=== PATIENT | female | born 1995 | race Caucasian/White ===

== ENCOUNTER 2019-06-08 04:08 | Emergency (ER) | payer SELFPAY ==
[2019-06-08 04:12] VITALS: BP 120/78; PULSE 91; RESP 20; TEMP 36.8; O2SAT 96
--- NOTE | 2019-06-08 04:32 | ED.GENADUL_ITS ---
Discharge Plan Disposition Patient Disposition: HOME Condition: Good Discharge Details Chief Complaint: DentalOral Clinical Impression: Fracture of tooth Primary Care Provider: Carina,Local ED Provider: Jourdan Mansfield Meds and New Rx's Prescriptions: New amoxicillin 500 mg capsule 500 mg PO TID Qty: 30 RF: 0 Hydrocodone/Apap 5/325, 4 Tab [[place] 5/325, 4 Tabs/Btl] 1 tab PO DISPENSE Qty: 4 RF: 0 Discharge Instructions Instructions: Hydrocodone/Acetaminophen (By mouth), Amoxicillin (By mouth) Additional Instructions: Please contact in area dentist today from the list provided to arrange for follow-up. Antibiotic as prescribed for presumed infection. Hydrocodone/acetaminophen if needed for severe pain. Continue use of ibuprofen as well. Return to ED for fever, difficulty breathing, facial swelling/redness, inability to swallow. Medical Decision Making Attempted mucosal benzocaine without relief. She has been using [id number] medication without relief. No temporary filling available here to try to help prevent pulp exposure. Given [place] 1 tab here as well as a moxicillin. Continue amoxicillin. To go bottle of [place] given for the day. State information sheet and informed consent regarding narcotics given. List of dentists in the area for her to call this morning for follow-up. Return to ED for fever, face swelling or redness, difficulty breathing, inability to swallow. HPI General Mode of arrival: ambulatory . Date/Time Provider Initiated Documentation: 06/08/19 04:18 . Limitations to Documentation: no limitations . Information obtained by: patient . HPI Narrative: Patient presents to ED with right lower dental pain after breaking of a molar yesterday eating [place]mina tafzeyady. She has had increased pain and a bad taste in her mouth since then. She has been taking Tylenol, Motrin, and using crushed aspirin and Orajel to try to dull the pain. It has just got continuously worse. She has no fever, difficulty breathing, trouble swallowing, facial edema or erythema. Related Data Home Medications Medication Instructions Recorded Confirmed HYDROcodone/APAP 5/325, 4 tab 1 tab PO DISPENSE #4 tab 06/08/19 [[place] 5/325, 4 tabs/btl] amoxicillin 500 mg PO TID #30 cap 06/08/19 Previous Rx's Medication Instructions Recorded HYDROcodone/APAP 5/325, 4 tab 1 tab PO DISPENSE #4 tab 06/08/19 [[place] 5/325, 4 tabs/btl] amoxicillin 500 mg PO TID #30 cap 06/08/19 Allergies Allergy/AdvReac Type Severity Reaction Status Date / Time No Known Allergies Allergy Unverified 06/08/19 04:14 General Stated Complaint: DentalOral SARAH: 4 Review of Systems Constitutional Constitutional: Denies fever(s) ENT Ears, Nose, Mouth, and Throat: Reports dental pain, Denies dysphagia and Denies throat swelling Cardiovascular Cardiovascular: Denies dyspnea Respiratory Respiratory: Denies dyspnea Gastrointestinal Gastrointestinal: Denies dysphagia Allergic/Immunologic Allergic/Immunologic: Denies throat swelling [facility] Medical History No active medical problems (Acute) Surgical History section Cholecystectomy Diagnostic Laproscopy After uterine perforation on D&C Dilation and curettage Family History (Updated 09/23/17 @ 16:10 by Rosalinda March MD) Other Multiple sclerosis Social History Smoking/Tobacco Use Status: Current every day Alcohol Intake: current Alcohol Intake frequency: a few times a week Substance use type: does not use Do you feel safe at home: Yes Do you feel safe in your relationship?: Yes Exam Const General: cooperative and healthy appearing Orientation: alert and oriented x3 HENMT Head: normocephalic and atraumatic Face and sinus: normal facial exam Mouth: lip normal, tongue normal and oropharynx normal Teeth and gingiva: gingiva normal (No obvious abscess present.), abnormal tooth or associated gingiva (Right lower molar with fracture present and pulp exposed.), fair dentition and other (Percussion tenderness involving fractured tooth.) Neck Neck: normal visual inspection, trachea midline and supple Resp Effort & Inspection: normal respiratory effort Course Vital Signs Vital signs: Vital Signs Temperature 98.2 F 06/08/19 04:12 Pulse 91 H 06/08/19 04:12 Respiratory Rate 20 06/08/19 04:12 Blood Pressure 120/78 06/08/19 04:12 Pulse Oximetry 96 06/08/19 04:12 Temperature 98.2 F 06/08/19 04:12 Temperature Source Temporal Artery Scan 06/08/19 04:12 Pulse 91 H 06/08/19 04:12 Respiratory Rate 20 06/08/19 04:12 Respiratory Effort Non-Labored 06/08/19 04:15 Blood Pressure 120/78 06/08/19 04:12 Blood Pressure Position Sitting 06/08/19 04:12 Pulse Oximetry 96 06/08/19 04:12 Oxygen Delivery Method Nasal Cannula 06/08/19 04:12 Oxygen Flow Rate 0 06/08/19 04:12 Pain Level 10 06/08/19 04:12
[2019-06-08] MEDS: Amoxicillin 500 MG CAP PO (04:48)
[2019-06-08] MEDS: HYDROcodone 5/Acetaminophen 325 TAB PO (04:48)
[2019-06-08 04:49] VITALS: BP 120/78; PULSE 91; RESP 20; TEMP 36.8; O2SAT 96
== END 2019-06-08 04:50 | disposition home or self-care (01) ==
PROVIDERS: Emergency Provider Emergency Medicine
DX: R68.84 Jaw pain (principal); S02.5XXA Fracture of tooth (traumatic), initial encounter for closed fracture; X58.XXXA Exposure to other specified factors, initial encounter
CPT/HCPCS: 99283

== ENCOUNTER 2019-06-09 16:54 | Emergency (ER) | payer SELFPAY ==
[2019-06-09 16:57] VITALS: BP 129/89; PULSE 84; RESP 16; TEMP 36.6; O2SAT 98
--- NOTE | 2019-06-09 17:20 | W.ED.GENAD ---
Discharge Plan Disposition Patient Disposition: HOME Condition: Good Discharge Details Chief Complaint: DentalOral Clinical Impression: Fracture of tooth Primary Care Provider: Carina,Local ED Provider: Lima Fabian Home Meds and New Rx's Prescriptions: New amoxicillin-pot clavulanate [Augmentin] 875-125 mg tablet 1 tab PO BID Qty: 14 RF: 0 ondansetron 4 mg tablet,disintegrating 4 mg PO Q6H PRN (Reason: nausea and vomiting) Qty: 10 RF: 0 hydrocodone-acetaminophen [[place]] 5-325 mg tablet 1 tab PO Q4H PRN (Reason: pain) Qty: 7 RF: 0 Continued Hydrocodone/Apap 5/325, 4 Tab [[place] 5/325, 4 Tabs/Btl] 1 tab PO DISPENSE Qty: 4 RF: 0 Discontinued amoxicillin 500 mg capsule 500 mg PO TID Qty: 30 RF: 0 Discharge Instructions Instructions: Acute Dental Trauma (ED) Additional Instructions: Encourage water intake. You may continue with Tylenol and ibuprofen as needed for discomfort. You may use the [place] as prescribed if this is insufficient. However, he can fill the [place] does have Tylenol in it. Is 325 mg/tab. you should not exceed 4000 mg of Tylenol daily. Zofran as prescribed if you have any recurrent nausea. Please keep your upcoming appointment with your dentist. If you develop fever/chills, increased pain or other new/worsening symptom please seek care urgently once again. Discharge Data Discharge Date/Time-TO BE ENTERED AT DEPARTURE: 06/09/19 18:12 Medical Decision Making Patient is a 23-year-old female presenting today with chief complaint of right lower dental pain. She reports she seen here 2 days ago at which time she was begun on amoxicillin. She states she is fractured the afflicted tooth quite a long time ago. However, she reports biting down on something recently and since that time having severe pain. States the pain does radiate into the mandible. Patient did call dentist and has an appointment on Wednesday. She denies fevers. Does endorse some chills. Has had some subjective swelling lateral to the afflicted tooth. Denies difficulty swallowing, difficulty breathing, no facial erythema. On exam, patient is resting comfortably. She is exquisitely tender noting a #30 tooth which does appear to be fractured. She is tender along the buccal and lingual side of the gumline. No fluctuance, erythema or palpable abscess. No swelling under the tongue. Patient was started on amoxicillin 2 days ago and despite this pain has continued to persist. Will change the amoxicillin given the length of time she is been on this. She has an appointment with dentist on Wednesday for follow-up. Patient received #4 [place] which she reports did help slightly with discomfort. She does report some nausea this is typical when she is taking antibiotics and is also requesting some Zofran. Encouraged use of nonnarcotics initially and then advised she may augment with the [place] as prescribed. Encourage water intake. Encouraged good dental care. Advised that she keep her upcoming appointment with dentist even if symptoms begin to improve. She was given return precautions. All of her questions and concerns were addressed and she is in agreement this plan. HPI General Mode of arrival: ambulatory. Date/Time Provider Initiated Documentation: 06/09/19 17:20. Limitations to Documentation: no limitations. Information obtained by: patient and RN notes reviewed. History of Present Illness 23 year old F presents to the emergency department with the chief complaint of right lowr dental pain, described as severe, Quality is described as stabbing, and is localized to the mouth. Patient reports no radiation. Patient started experiencing this day(s) and it has been constant. No relieving factors improve symptom(s), Eating worsens symptoms . Patient notes no other symptoms.. Patient did receive the following treatments prior to arrival, NSAID and other (norco) Related Data Home Medications Medication Instructions Recorded Confirmed HYDROcodone/APAP 5/325, 4 tab 1 tab PO DISPENSE #4 tab 06/08/19 [[place] 5/325, 4 tabs/btl] amoxicillin-pot clavulanate 1 tab PO BID #14 tab 06/09/19 [Augmentin] hydrocodone-acetaminophen [[place]] 1 tab PO Q4H PRN #7 tab 06/09/19 ondansetron 4 mg PO Q6H PRN #10 tab 06/09/19 Previous Rx's Medication Instructions Recorded HYDROcodone/APAP 5/325, 4 tab 1 tab PO DISPENSE #4 tab 06/08/19 [[place] 5/325, 4 tabs/btl] amoxicillin-pot clavulanate 1 tab PO BID #14 tab 06/09/19 [Augmentin] hydrocodone-acetaminophen [[place]] 1 tab PO Q4H PRN #7 tab 06/09/19 ondansetron 4 mg PO Q6H PRN #10 tab 06/09/19 Allergies Allergy/AdvReac Type Severity Reaction Status Date / Time No Known Allergies Allergy Unverified 06/09/19 17:01 General Stated Complaint: DentalOral SARAH: 4 Review of Systems Constitutional Constitutional: Reports as per HPI, Denies chills, Denies fatigue, Denies fever(s), Denies headache(s) and Denies poor appetite Eyes Eyes: Denies change in vision and Denies irritation ENT Ears, Nose, Mouth, and Throat: Reports as per HPI, Reports dental pain, Denies dysphagia, Denies dizziness, Denies dry mouth, Denies ear discharge, Denies otalgia, Reports facial pain, Denies headache(s), Denies hoarseness, Denies lip swelling, Denies nasal congestion, Denies odynophagia and Denies sore throat Cardiovascular Cardiovascular: Reports as per HPI and Denies chest pain Respiratory Respiratory: Reports as per HPI and Denies cough Gastrointestinal Gastrointestinal: Reports as per HPI, Denies dysphagia, Denies nausea, Denies odynophagia and Denies vomiting Integumentary/Breasts Skin/Breast: Reports as per HPI, Denies erythema, Denies rash and Denies skin pain Neurologic Neurologic: Reports as per HPI, Denies dizziness and Denies headache(s) Endocrine Endocrine: Denies fatigue Allergic/Immunologic Allergic/Immunologic: Denies lip swelling [facility] Medical History No active medical problems (Acute) Family History (Updated 09/23/17 @ 16:10 by Rosalinda March MD) Other Multiple sclerosis Social History Smoking/Tobacco Use Status: Current every day Alcohol Intake: current Alcohol Intake frequency: a few times a week Substance use type: does not use Do you feel safe at home: Yes Do you feel safe in your relationship?: Yes Exam Const General: cooperative, healthy appearing, comfortable, no acute distress, well developed and well groomed Nutritional Appearance: average body habitus and well nourished Orientation: alert and awake [facility] Head: normal to inspection, normocephalic and atraumatic Ears: hearing grossly normal bilaterally, external ears normal and TM's normal bilaterally General nose exam: external nose normal and nares normal Face and sinus: normal facial exam, sinuses nontender and face symmetric Teeth and gingiva: dentition normal (Patient is overall good dentition, crackles noted in the #30 tooth) and gingiva normal (Patient is tender along this area on the lingual and buccal side) Throat: posterior oropharynx normal, tonsils normal and uvula midline Eyes General: appearance normal, both eyes and all related structures Neck Neck: normal visual inspection, full ROM, no lymphadenopathy, supple and no anterior neck swelling Resp Effort & Inspection: normal respiratory effort, able to speak in complete sentences and no respiratory distress Auscultation: clear to auscultation bilaterally, no rales, no rhonchi and no wheezes Cardio Rate: regular rate Rhythm: regular rhythm Heart Sounds: S1 normal and S2 normal Skin General skin exam: no rashes or lesions noted Trauma: no lacerations or abrasions Neuro General: alert and awake Cognition: normal cognition Speech: speech normal Gait: normal gait Psych Appearance: grossly normal and well kempt Mental Status: mental status grossly normal Speech and Movement: speech and movement normal Course Vital Signs Vital signs: Vital Signs Temperature 36.6 C 06/09/19 16:57 Pulse 84 06/09/19 16:57 Respiratory Rate 16 06/09/19 16:57 Blood Pressure 129/89 06/09/19 16:57 Pulse Oximetry 98 06/09/19 16:57 Temperature 36.6 C 06/09/19 16:57 Pulse 84 06/09/19 16:57 Respiratory Rate 16 06/09/19 16:57 Respiratory Effort 06/09/19 17:01 Blood Pressure 129/89 06/09/19 16:57 Blood Pressure Position Sitting 06/09/19 16:57 Pulse Oximetry 98 06/09/19 16:57 Oxygen Delivery Method Room Air 06/09/19 16:57 Oxygen Flow Rate 0 06/09/19 16:57 Pain Level 10 06/09/19 17:11
[2019-06-09 18:10] VITALS: BP 129/89; PULSE 84; RESP 16; TEMP 36.6; O2SAT 98
== END 2019-06-09 18:12 | disposition home or self-care (01) ==
PROVIDERS: Emergency Provider Physician Assistant
DX: R68.84 Jaw pain (principal); S02.5XXA Fracture of tooth (traumatic), initial encounter for closed fracture; X58.XXXA Exposure to other specified factors, initial encounter
CPT/HCPCS: 99283

== ENCOUNTER 2019-12-11 09:13 | Emergency (ER) | payer MEDICAID, SELFPAY ==
[2019-12-11 09:20] VITALS: BP 147/79; PULSE 97; RESP 18; TEMP 36.8; O2SAT 98
--- NOTE | 2019-12-11 09:30 | ED.GENADUL_ITS ---
Discharge Plan Disposition Patient Disposition: HOME Condition: Improving Discharge Details Chief Complaint: Nk/Back Pain Clinical Impression: Contusion of rib on right side Primary Care Provider: Gianfranco Ramirez ED Provider: Rosalba Hernandez Home Meds and New Rx's Prescriptions: New oxycodone 5 mg tablet 5 mg PO Q6H PRN (Reason: pain) Qty: 10 RF: 0 ondansetron 4 mg tablet,disintegrating 4 mg PO TID PRN (Reason: nausea and vomiting) Qty: 6 RF: 0 Discharge Instructions Instructions: Rib Contusion (ED) Additional Instructions: Drink plenty of fluids and get plenty of rest. Alternate tylenol and motrin as needed and directed for pain. Take the oxycodone for pain not relieved with Tylenol or Motrin. Take the Zofran as needed and directed for nausea and vomiting. Use the incentive spirometer to help you with taking deep breaths to prevent the development of pneumonia. Follow up with your primary care doctor in 1 week as needed. Return to the emergency department with any worsening or new concerning symptoms such as blood in your urine, chest pain, difficulty breathing, abdominal pain or persistent vomiting. Discharge Data Discharge Physician: Rosalba Hernandez Medical Decision Making 0930 -- 24-year-old female presents with right posterior inferior lateral rib pain after falling off the bed and hitting her right lower lateral back on a metal fan last night. Denies any hematuria or other change in urinary symptoms. Denies cauda equina symptoms. BP mildly hypertensive. She appears nontoxic but quite uncomfortable. She has localized area of tenderness to the right posterior inferolateral ribs. No CVA tenderness. No abdominal tenderness. No focal deficits. Neurovascular intact. Will refer for right rib and PA lateral chest x-ray, give a dose of oxycodone and Lidoderm patch and reassess. X-rays reviewed and negative. Suspect patient has a rib fracture based on her level of pain. Her pain improved somewhat here. She was given an incentive spirometer and prescriptions for oxycodone and Zofran. She requested Zofran as she developed nausea with narcotics. Advised to follow up with the primary care doctor for re-evaluation. Usual and customary return precautions given prior to discharge. Medical Records Medical records reviewed: Yes I reviewed the patient's medical records. Imaging Data Radiologic Study: Radiologist's impression: XR RIBS RT W PA LAT CHEST CLINICAL HISTORY: hit R lower ribs on metal fan, r/o fx @ rib 01/17 TECHNIQUE: COMPARISON: CR ABD FLAT UPRIGHT PA CHEST from 02/01/2011 FINDINGS: PA and lateral chest with 2 additional views of right ribs were obtained. Heart is not enlarged. Lungs are clear. No pneumothorax or pleural effusion. No rib fracture seen. IMPRESSION: Negative examination of the chest and ribs. HPI General Mode of arrival: ambulatory . Date/Time Provider Initiated Documentation: 12/11/19 09:29 . Limitations to Documentation: no limitations . Information obtained by: patient . HPI Narrative: Patient is a 24-year-old female with a history of hysterectomy who presents with right posterior lower rib pain since last night after falling off of a bed in intercourse with her boyfriend last night. She states she hit her right lower back on a metal fan. She has been having pain in this area since then. She denies any pain in any other locations. She states she hit her head mildly but denies any headache or head injury, LOC or vomiting. Tylenol this morning without relief. She also tried a lidocaine patch last night without relief. She denies fever, abdominal pain, bowel or bladder incontinence, leg pain or numbness, hematuria, dysuria or any change in urination. Related Data Home Medications Medication Instructions Recorded Confirmed ondansetron 4 mg PO TID PRN #6 tab 12/11/19 oxycodone 5 mg PO Q6H PRN #10 tab 12/11/19 Previous Rx's Medication Instructions Recorded ondansetron 4 mg PO TID PRN #6 tab 12/11/19 oxycodone 5 mg PO Q6H PRN #10 tab 12/11/19 Allergies Allergy/AdvReac Type Severity Reaction Status Date / Time No Known Allergies Allergy Unverified 12/11/19 09:22 General Stated Complaint: FlankPain SARAH: 3 Review of Systems All systems reviewed & are unremarkable except as noted in HPI and below Constitutional Constitutional: Reports as per HPI, Denies chills and Denies fever(s) Eyes Eyes: Denies blurry vision ENT Ears, Nose, Mouth, and Throat: Denies dizziness, Denies sore throat and Denies throat swelling Cardiovascular Cardiovascular: Denies chest pain and Denies dyspnea Respiratory Respiratory: Denies cough and Denies dyspnea Gastrointestinal Gastrointestinal: Denies abdominal pain, Denies diarrhea and Denies vomiting Genitourinary Genitourinary: Denies hematuria and Denies dysuria Musculoskeletal Musculoskeletal: Reports back pain and Denies numbness Integumentary/Breasts Skin/Breast: Denies lesions and Denies rash Neurologic Neurologic: Denies dizziness, Denies localized weakness and Denies numbness Allergic/Immunologic Allergic/Immunologic: Denies throat swelling [facility] Medical History (Updated 12/11/19 @ 10:41 by Rosalba Hernandez DO) No active medical problems (Acute) Surgical History (Updated 12/11/19 @ 09:41 by Rosalba eHrnandez DO) section Cholecystectomy Diagnostic Laproscopy After uterine perforation on D&C Dilation and curettage History of hysterectomy (Chronic) Family History (Updated 09/23/17 @ 16:10 by Rosalinda March MD) Other Multiple sclerosis Social History Smoking/Tobacco Use Status: Current every day Tobacco Type: cigarettes Alcohol Intake: current Alcohol Intake frequency: a few times a week Substance use type: does not use Do you feel safe at home: Yes Do you feel safe in your relationship?: Yes Exam Const General: cooperative, uncomfortable and no acute distress HENMT Head: normal to inspection Face and sinus: normal facial exam Eyes General: appearance normal, both eyes and all related structures EOM: EOM intact bilaterally Neck Neck: normal visual inspection and No submandibular swelling Lymphatic: no lymphadenopathy noted Chest Chest: normal inspection of the chest and no tenderness Resp Effort & Inspection: normal respiratory effort and able to speak in complete sentences Auscultation: clear to auscultation bilaterally Cardio Rate: regular rate Rhythm: regular rhythm GI Inspection: normal to inspection Palpation: soft, not firm, not rigid and nontender Auscultation: normal bowel sounds Back/Spine/Pelvis Thoracic/Lumbar Spine: thoracic and lumbar spine normal to inspection and straight leg raise negative bilaterally Back/spine/pelvis image: 1. Tenderness to palpation R posterior inferolateral ribs. No crepitus, edema, ecchymoses, step off or abrasions. Skin General skin exam: no rashes or lesions noted Neuro General: patient alert, patient awake and patient oriented x3 Cognition: normal cognition Speech: speech normal Motor: muscle tone normal throughout and strength 5/5 throughout (b/l LE) Sensory Exam: no sensory deficits noted Extrem General: normal to inspection, full ROM, capillary refill normal, no calf tenderness bilaterally and no edema Other: b/l distal pulses intact. Psych Appearance: grossly normal Mental Status: mental status grossly normal Speech and Movement: speech and movement normal Affect: normal affect Course Vital Signs Vital signs: Vital Signs Temperature 98.2 F 12/11/19 09:20 Pulse 97 H 12/11/19 09:20 Respiratory Rate 18 12/11/19 09:20 Blood Pressure 147/79 H 12/11/19 09:20 Pulse Oximetry 98 12/11/19 09:20 Temperature 98.2 F 12/11/19 09:20 Temperature Source Skin 12/11/19 09:20 Pulse 97 H 12/11/19 09:20 Respiratory Rate 18 12/11/19 09:20 Respiratory Effort 12/11/19 09:23 Blood Pressure 147/79 H 12/11/19 09:20 Blood Pressure Position Sitting 12/11/19 09:20 Pulse Oximetry 98 12/11/19 09:20 Oxygen Delivery Method Room Air 12/11/19 09:20 Oxygen Flow Rate 0 12/11/19 09:20 Pain Level 9 12/11/19 09:25
[2019-12-11] MEDS: oxyCODONE 5 MG TAB PO (09:45)
[2019-12-11] MEDS: Lidocaine 5% Patch 1 PATCH TP (09:47)
[2019-12-11 10:38] VITALS: BP 117/76; PULSE 90; RESP 14; O2SAT 98
[2019-12-11] MEDS: Ondansetron O.D.T. 4 MG TABEF (10:42)
== END 2019-12-11 10:50 | disposition home or self-care (01) ==
PROVIDERS: Emergency Provider Physician Assistant; PCP General Practice
DX: S20.221A Contusion of right back wall of thorax, initial encounter (principal); W06.XXXA Fall from bed, initial encounter; W22.8XXA Striking against or struck by other objects, initial encounter
CPT/HCPCS: 99283; 71046; 71100

== ENCOUNTER 2021-02-11 21:31 | Emergency (ER) | payer MEDICAID, SELFPAY ==
[2021-02-11 21:39] VITALS: BP 126/85; PULSE 75; RESP 18; TEMP 36.4; O2SAT 100
[2021-02-11 21:53] LABS: Bilirubin Negative (Negative); Blood Negative (Negative); Clarity Clear (Clear); Ketones Negative (Negative); Leukocyte Esterase Negative (Negative); Urobilinogen 0.2 EU/dL (Up TO 0.2); pH 6.5 (5-8)
--- NOTE | 2021-02-11 22:03 | ED.GENADUL_ITS ---
Discharge Plan Disposition Patient Disposition: HOME Condition: Good Discharge Details Clinical Impression: Bacterial vaginosis, Dysuria Primary Care Provider: Gianfranco Ramirez ED Provider: Remington Bell Home Meds and New Rx's Prescriptions: New metronidazole 500 mg tablet 500 mg PO BID 7 Days Qty: 14 RF: 0 Continued Vyvanse 50 mg Capsule 50 mg PO DAILY RF: 0 ondansetron 4 mg tablet,disintegrating 4 mg PO TID PRN (Reason: nausea and vomiting) Qty: 6 RF: 0 Discharge Instructions Instructions: Metronidazole (By mouth), Bacterial Vaginosis (ED), Dysuria (ED) Additional Instructions: You have evidence of bacterial vaginosis. This is the cause of your discharge, but unlikely to be the cause of your dysuria. Please take the metronidazole as directed. We have given you a few pills to hold you over until you are able to fill your prescription. Please take Tylenol and Motrin as needed for pain. Take the [place] pain pill only as needed for breakthrough pain. Do not drink any alcohol while taking the [place] or the metronidazole as it can cause a notable reaction. We have placed a referral with our urologist. Please follow-up closely with him for further differentiation of your persistent dysuria. If you notice any worsening of your symptoms, or any new symptoms such as vomiting, diarrhea, fever, chills, shortness of breath, chest pain, numbness, weakness, or fainting , please return immediately to the emergency department for reevaluation. Please follow up with your primary care provider as soon as possible for reassessment and reevaluation. As always, it was a pleasure participating in your medical care today. Stand Alone Forms: Work Release Referrals: Puneet Griggs MD [ [facility] STAFF PHYSICIAN] - Medical Decision Making This is a 25-year-old female who denies any significant past medical history who presents today for evaluation of urinary complaints vaginal discharge. Patient states that over the last 2 to 3 weeks she has had mild vaginal discharge which is atypical for her. She has had a history of a hysterectomy in the past and single ovarian removal. She admits to urinary burning, dysuria, frequency and now lower back pain. She admits to occasional chills. She denies any vomiting or diarrhea. She denies any history of STDs. She states that she is in a monogamous relationship but does not use protection. No other complaints at this time. She has been drinking extra fluids and taking Azo, and has also been taking a few leftover penicillin pills with no improvement of her symptoms. No other modifying factors. Physical exam demonstrates mild suprapubic tenderness, no flank or CVA tenderness, no lower abdominal tenderness. Differential includes UTI, potential vaginal infection, however she has had a hysterectomy. We will get a UA, perform pelvic exam, monitor closely and reassess. Symptoms at this time appear inconsistent with acute appendicitis. 11:19 PM Vaginal exam was performed, few abnormal findings were noted. First of all the patient has notable tenderness over the urethral meatus, almost out of proportion with what I would have expected. External genitals showed no signs of lesions, ulcers, masses or abnormality. Clitoris is unremarkable. The vaginal exam demonstrates notable amount of thick white noncurd-like discharge. She has notable tenderness in the posterior proximal component of the vaginal vault. No lesion is visualized on exam. Bimanual exam is unremarkable and nontender. 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 Additionally she states that post hysterectomy she did have rupture or dehiscence of a few of the sutures and had subsequent scarring. In regards to the current clinical process the patient did have intercourse 4 days ago, and while her dysuria was certainly present before then, the day following the episode of intercourse she began having the vaginal discharge and greater pain and pressure in the pelvic region. She states that her episode of intercourse was nontender and otherwise unremarkable without extra or atypical vigorous components. Because of these findings, and the exam we will get a CT scan to evaluate for potential posterior cuff abscess, there is no ultrasound is currently available. We will treat with morphine for pain control, rehydrate, monitor closely and reassess. 1:[address] scan has returned, no evidence of significant abnormality, no evidence of abscess. There is trace free pelvic fluid, but no other significant abnormality. Vaginal path screen does demonstrate bacterial vaginosis which does correlate with the visual findings noted on exam. Laboratory work-up is unremarkable, no white count bandemia or left shift. Urinalysis was notably negative, repeat second urinalysis was collected and is also completely negative of any evidence of infection, leuk esterase, nitrates, or significant RBCs. After morphine repeat abdominal exam demonstrated notable improvement of pre viously present tenderness, patient feels well. Symptoms inconsistent with torsion of her remaining ovary, and are also inconsistent with appendicitis or other acute surgical abdominal pathology. Uncertain as to what the exact cause of her continued urethritis symptoms are, however patient does have a family history of MS, so there is concern for potential autoimmune components including interstitial cystitis, neurogenic bladder versus bladder spasm, or other etiologies. At this time patient is feeling better and is stable for discharge but does require further evaluation. We will place a referral with urology for further assessment of the patient's persistent cystitis. Gonorrhea and Chlamydia test as are still pending, she will be contacted with any positive results. I feel these are notably unlikely though. Will give oral metronidazole for bacterial vaginosis, place referral with urology, recommend close follow-up with PCP. Discussed red flags which to return. I have extensi vely reviewed the treatment plan and discharge instructions with the patient. I have addressed all patient concerns at this time. The patient was made aware of what symptoms to monitor for that would warrant a return to the emergency department. Discussed the plan with the patient, they demonstrate verbal understanding and agreement with our assessment and plan at this time. The documentation in this chart was dictated using Sverve dictation software. Please excuse any dictation errors. OF NOTE: At time of discharge patient was given a small additional dose of morph ine, immediately thereafter she had a notable spasm and abdominal cramp. Bedside ultrasound showed no evidence of aneurysm, no pericardial effusion, EKG is unremarkable. Symptoms resolved shortly thereafter on their own without any intervention no significance. Patient did note then that when she got her first dose of morphine she did notice similar symptoms although significantly more muted, and this felt like a much stronger exacerbation of the symptoms. She demonstrates no rash, no airway compromise, no angioedema, or signs of anaphylaxis whatsoever. After just a few minutes her symptoms completely resolved. I did offer continued observation here in the ED, however she states that she feels well and would like to go home now. Patient will be discharged according to plan. FINDINGS: Liver: Normal. No mass. Gallbladder and bile ducts: The patient is status post cholecystectomy. Pancreas: Normal. No ductal dilation. Spleen: Normal. No splenomegaly. Adrenal glands: Normal. No mass. Kidneys and ureters: Normal. No hydronephrosis. Stomach and bowel: Unremarkable. No obstruction. No mucosal thickening. Appendix: No evidence of appendicitis. Intraperitoneal space: Trace free fluid is present which is nonspecific but may reflect physiologic fluid or rupture of an ovarian cyst or follicle. Vasculature: Unremarkable. No abdominal aortic aneurysm. Lymph nodes: Unremarkable. No enlarged lymph nodes. Urinary bladder: Unremarkable as visualized. Reproductive: The patient is status post hysterectomy. Bones/joints: Unremarkable. No acute fracture. Soft tissues: Unremarkable. IMPRESSION: Trace free pelvic fluid. Thank you for allowing us to participate in the care of your patient. Dictated and Authenticated by: Frank Cotton MD 02/12/2021 12:08 AM Eastern Time ([place] & [place]) HPI General Date/Time Provider Initiated Documentation: 02/11/21 21:31 . HPI Narrative: Kelsy ramirez is a 25-year-old female who denies any significant past medical history who presents today for evaluation of urinary complaints vaginal discharge. Patient states that over the last 2 to 3 weeks she has had mild vaginal discharge which is atypical for her. She has had a history of a hysterectomy in the past. She admits to urinary burning, dysuria, frequency and now lower back pain. She admits to occasional chills. She denies any vomiting or diarrhea. She denies any history of STDs. She states that she is in a monogamous relationship but does not use protection. No other complaints at this time. She has been drinking extra fluids and taking Azo, and has also been taking a few leftover penicillin pills with no improvement of her symptoms. No other modifying factors. Related Data Home Medications Medication Instructions Recorded Confirmed ondansetron 4 mg PO TID PRN #6 tab 12/11/19 02/11/21 Vyvanse 50 mg PO DAILY 02/11/21 02/11/21 metronidazole 500 mg PO BID 7 Days #14 tab 02/12/21 Previous Rx's Medication Instructions Recorded ondansetron 4 mg PO TID PRN #6 tab 12/11/19 metronidazole 500 mg PO BID 7 Days #14 tab 02/12/21 Allergies Allergy/AdvReac Type Severity Reaction Status Date / Time No Known Allergies Allergy Unverified 02/11/21 21:43 General Stated Complaint: Urinary SARAH: 3 Review of Systems All systems reviewed & are unremarkable except as noted in HPI and below PFSH Medical History No active medical problems Surgical History section Cholecystectomy Diagnostic Laproscopy After uterine perforation on D&C Dilation and curettage History of hysterectomy Family History Other Multiple sclerosis Social History Smoking/Tobacco Use Status: Current every day Tobacco Type: cigarettes Smoking risk assessment performed?: Yes Alcohol Intake: current Alcohol Intake frequency: a few times a week Substance use type: does not use Do you feel safe at home: Yes Do you feel safe in your relationship?: Yes Exam Narrative Exam Narrative: 1.Const: Well-nourished, Well-developed, appearing stated age 2.Eyes: PERRL, no conjunctival injection, and symmetrical lids. 3.ENT: Atraumatic external nose and ears. Moist MM. Neck: Symmetric, trachea midline, No thyromegaly. 4.CVS: +S1/S2, No murmurs or gallops. Peripheral pulses 2+ and equal in all extremities. Brisk capillary refill in all extremities. 5.RESP: Unlabored respiratory effort. Clear to auscultation bilaterally. No wheezes rales or rhonchi 6.GI: Soft, nondistended, mild tenderness in the lower suprapubic region, no flank or CVA tenderness. No pain at McBurney's point, negative Caceres sign. Vaginal exam was performed with female nurse Milli at bedside. Vaginal exam demonstrates notable thick noncurd-like white discharge. No lesions that I can visualize. Notable tenderness over the urethra, but no lesions, ulcers or other abnormalities visualized. Bimanual exam demonstrates no tenderness, however palpation of the posterior proximal component to the vaginal vault does elicit notable tenderness. 7.MSK: Normocephalic/Atraumatic, Extremities w/o deformity or ttp No cyanosis or clubbing, Normal movement of all extremities 8.Skin: Warm, Dry. No rashes or lesions. 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 Sensation grossly intact, no focal neurologic deficits. 10.Psych: (AAO) x3. Appropriate mood and affect Course Vital Signs Vital signs: Vital Signs Temperature 36.4 C L 02/11/21 21:39 Pulse 75 02/11/21 21:39 Respiratory Rate 18 02/11/21 21:39 Blood Pressure 126/85 02/11/21 21:39 Pulse Oximetry 100 02/11/21 21:39 Temperature 36.4 C L 02/11/21 21:39 Pulse 75 02/11/21 21:39 Respiratory Rate 18 02/11/21 21:39 Respiratory Effort Non-Labored 02/11/21 21:41 Blood Pressure 126/85 02/11/21 21:39 Pulse Oximetry 100 02/11/21 21:39 Pain Level 8 02/11/21 21:39 Lab/Test Results Lab/Test Results: Laboratory Tests Range/Units 02/11/21 21:45 Urine Color (Yellow) [place] Urine Clarity (Clear) Clear Urine pH (5-8) 6.5 Ur Specific Bryan (1.005-1.025) 1.010 Urine Protein (Negative) mg/dL Negative Urine Ketones (Negative) mg/dL Negative Urine Blood (Negative) Negative Urine Nitrite (Negative) Urine Bilirubin (Negative) Negative Urine Urobilinogen (Up TO 0.2) EU/dL 0.2 Ur Leukocyte Esterase (Negative) Negative Urine Glucose (Negative) mg/dL POC- Test(urine) Negative
[2021-02-11] MEDS: Ketorolac 30 MG/ML VIAL IM (22:15)
--- NOTE | 2021-02-11 22:30 | DI.CT_ITS ---
Exam(s) CT ABDOMEN PELVIS W EXAM: CT ABDOMEN PELVIS W CLINICAL HISTORY: pelvic pain, vag d/c, notably tender vag cuff, hys TECHNIQUE: Imaging Protocol: Axial computed tomography images with coronal and sagittal reformatted images were created and reviewed CONTRAST MATERIAL: Intravenous: Omnipaque 350 Contrast volume:100 mL Oral: No COMPARISON: No exams were available for comparison FINDINGS: ABDOMEN: Lung Bases: Normal where visualized. Liver: Normal density. No measurable mass. Portal, Superior Mesenteric, and Splenic Veins: Unremarkable. Gallbladder and Biliary Tract: Status post cholecystectomy. No biliary ductal dilatation. Pancreas: Normal density, no abnormal calcifications or inflammatory process. Spleen: Normal. Adrenals: No masses seen. Kidneys: Normal size, contour and axis. No radiodense stones or obstructive uropathy. No masses seen. Abdominal Aorta: Abdominal portion non-dilated. IVC: There is a retroaortic left renal vein. Bowel: No obstruction or bowel wall thickening. There is an air-filled appendix without periappendice al inflammation. Peritoneal Cavity: There is a trace amount of fluid in the pelvis. No free air. Lymph Nodes: Within normal limits. Bones: Within normal limits for the patient's age. Soft Tissues: Unremarkable. PELVIS: Bladder: Incompletely distended but no gross abnormality. Reproductive Organs: There is a peripherally enhancing 2.4 cm left ovarian follicle. The ovaries are unremarkable. Status post hysterectomy. There is also stranding stranding in the soft tissues surr ounding the vaginal cuff. No focal fluid collection is seen to suggest an abscess. Lymph Nodes: Within normal limits. Bones: Within normal limits for the patient's age. IMPRESSION: 1. Mild stranding around the vaginal cuff. An inflammatory/infectious process should be considered. No abscess is seen. 2. Small amount of free fluid in the pelvis. RADIATION DOSE DELIVERED: 886.62mGy.cm Total DLP DATA REPOSITORY: All CT scans at this facility are submitted to the National Radiology Data Registry (NRDR) Dose Index Registry (DIR) with the [employer] ([employer]). RADIATION OPTIMIZATION: All CT scans at this facility use at least one of these dose optimization te chniques: automated exposure control; mA and/or kV adjustment per patient size (includes targeted exa ms where dose is matched to clinical indication); or iterative reconstruction.
[2021-02-11 22:59] LABS: Abs Immature Grans 0.02 10^3/uL (0.0-0.06); Absolute Basophil Count 0.04 10^3/uL (0.0-0.2); Absolute Eosinophil Count 0.48 10^3/uL (0.0-0.7); Absolute Lymphocyte Count 3.17 10^3/uL (1.2-3.4); Absolute Monocyte Count 0.49 10^3/uL (0.1-0.8); Absolute Neutrophil Count 4.63 10^3/uL (1.2-6.7); Basophils % 0.5; Eosinophils % 5.4; HCT 39.5 % (36.0-46.0); HGB 13.1 g/dL (11.2-15.7); Immature Grans % 0.2; Lymphocytes % 35.9; MCH 31.8 pg (27.0-33.0); MCHC 33.2 % (32.0-36.0); MCV 95.9 fL (80-95); MPV 8.8 fL (8.0-11.0); Monocytes % 5.5; Neutrophils % 52.5; Nucleated RBC 0 %; Platelet Count 229 10^3/uL (130-400); RBC 4.12 10^6/uL (3.93-5.22); RDW 11.8 % (11.7-14.6); RDW-SD 41.2 fL; WBC 8.83 10^3/uL (4.4-10.8)
[2021-02-11] MEDS: Omnipaque 350 MG/ML 100 ML BTL IJ (23:02)
[2021-02-11] MEDS: Normal Saline - Diluent 50 ML VIAL IV (23:02)
[2021-02-11] MEDS: Normal Saline Flush 10 ML SYR IVP (23:03)
[2021-02-11 23:18] LABS: ALT 16 U/L (14-59); AST 12 U/L (15-37); Albumin 4.2 g/dL (3.4-5.0); Alkaline Phosphatase 59 U/L (46-116); Anion Gap 7.2 mmol/L (3-11); BUN 9 mg/dL (7-18); Bilirubin, Total 0.5 mg/dL (0.2-1.0); CO2 27.8 mmol/L (21.0-32.0); CREATININE 0.8 mg/dL (0.55-1.02); Calcium 8.8 mg/dL (8.5-10.1); Chloride 106 mmol/L (98-107); Glucose 85 mg/dL (74-106); Sodium 141 mmol/L (136-145); Total Protein 7.6 g/dL (6.4-8.2)
[2021-02-11 23:21] VITALS: BP 112/74; PULSE 69; RESP 18; O2SAT 99
[2021-02-11] MEDS: Lactated Ringers 1,000 ML 1000 ML IV (23:27)
[2021-02-11 23:47] LABS: Clarity Clear (Clear)
[2021-02-11 23:55] LABS: Bacteria Negative HPF (Negative); C & S Indicated? No; Crystals Negative HPF (Negative); Epithelial Cells Negative HPF (Negative); Mucus Negative (Negative); RBC 0-2 HPF (0-2); WBC Negative HPF (0-5)
--- NOTE | 2021-02-12 00:09 | DI.VRAD_ITS ---
Addendum created by Frank Cotton MD on 02/12/2021 12:15:28 AM EDT: THIS REPORT CONTAINS FINDINGS THAT MAY BE CRITICAL TO PATIENT CARE. The findings were verbally communicated via telephone conference with BLAYNE NGUYỄN at 12:15 AM EDT on 02/12/2021. The findings were acknowledged and understood. Initial report created on 02/12/2021 12:08:23 AM EDT: PROCEDURE INFORMATION: Exam: CT Abdomen And Pelvis With Contrast Exam date and time: 02/11/2021 10:37 PM Age: 25 years old Clinical indication: Abdominal pain; Localized; Lower; Prior surgery; Surgery date: 6+ months; Surgery type: Hysterectomy, cholecystectomy, ; Patient HX: Pelvic pain for 2 weeks, nausea, vag d/c, notably tender vag cuff, hys TECHNIQUE: Imaging protocol: Computed tomography of the abdomen and pelvis with contrast. Radiation optimization: All CT scans at this facility use at least one of these dose optimization techniques: automated exposure control; mA and/or kV adjustment per patient size (includes targeted exams where dose is matched to clinical indication); or iterative reconstruction. Contrast material: [id number]; Contrast volume: 100 ml; Contrast route: INTRAVENOUS (IV); COMPARISON: [facility] OB ULTRASOUND 10/01/2017 11:06 AM FINDINGS: Liver: Normal. No mass. Gallbladder and bile ducts: The patient is status post cholecystectomy. Pancreas: Normal. No ductal dilation. Spleen: Normal. No splenomegaly. Adrenal glands: Normal. No mass. Kidneys and ureters: Normal. No hydronephrosis. Stomach and bowel: Unremarkable. No obstruction. No mucosal thickening. Appendix: No evidence of appendicitis. Intraperitoneal space: Trace free fluid is present which is nonspecific but may reflect physiologic fluid or rupture of an ovarian cyst or follicle. Vasculature: Unremarkable. No abdominal aortic aneurysm. Lymph nodes: Unremarkable. No enlarged lymph nodes. Urinary bladder: Unremarkable as visualized. Reproductive: The patient is status post hysterectomy. Bones/joints: Unremarkable. No acute fracture. Soft tissues: Unremarkable. IMPRESSION: Trace free pelvic fluid. Dictated and Authenticated by: Frank Cotton MD. Ordering:MICHAEL Macedo MD
--- NOTE | 2021-02-12 00:31 | NUR.NOTE ---
Nursing Note: i faxed the care management referral for urology in one week , ning
[2021-02-12] MEDS: metroNIDAZOLE 500 MG TAB, 3 TABS/BTL PO (00:41)
--- NOTE | 2021-02-12 00:45 | RT.EKG_ITS ---
APPROVED REPORT Exam: Resting ECG Reason for Exam: chest pain Patient Location: E HR:70 bpm ECG Measurements Heart Rate 70 AXIS WV 158 P 75 QRSd 86 QRS 53 QT 400 T 47 QTc 431 Conclusion Sinus rhythm...normal P axis, V-rate 60- 99 Physician: no stemi, unremarkable
[2021-02-12 00:47] VITALS: BP 110/68; PULSE 68; RESP 16; O2SAT 98
[2021-02-12 00:54] VITALS: BP 112/62; PULSE 70; RESP 15; O2SAT 100
--- NOTE | 2021-02-12 15:36 | NUR.NOTE ---
returned her call to tell her that the results she is looking for are still pending.Nursing Note:
[2021-02-13 14:06] LABS: Chlamydia Result Negative (Negative); GC Result Negative (Negative)
== END 2021-02-12 01:16 | disposition home or self-care (01) ==
PROVIDERS: Emergency Provider Student in an Organized Health Care Education/Training Program; PCP General Practice
DX: N76.0 Acute vaginitis (principal); B96.89 Other specified bacterial agents as the cause of diseases classified elsewhere; R30.0 Dysuria; R10.2 Pelvic and perineal pain; Z90.710 Acquired absence of both cervix and uterus
CPT/HCPCS: 80053; 81025; 87491; 87591; 93005; 96361; 96372; 96374; 96376; 99285; 74177; 81003; 81015; 85025; 87480; 87510; 87660; 93010; J1885; J3490

== ENCOUNTER 2021-02-13 21:32 | Outpatient (REF) | payer MEDICAID, SELFPAY ==
[2021-02-13 19:59] LABS: Bilirubin Negative (Negative); Blood Negative (Negative); Clarity Clear (Clear); Glucose Negative (Negative); Ketones Negative (Negative); Leukocyte Esterase Trace (Negative); Nitrite Negative (Negative); Urobilinogen 0.2 EU/dL (Up TO 0.2)
[2021-02-13 20:15] LABS: Bacteria Negative HPF (Negative); C & S Indicated? Yes; Casts Negative LPF (Negative); Crystals Negative HPF (Negative); Epithelial Cells Few HPF (Negative); Mucus Negative (Negative); Other Cells Negative (Negative); RBC Negative HPF (0-2)
== END 2021-02-13 21:33 | disposition home or self-care (01) ==
LOC: LBN 21:32
PROVIDERS: PCP General Practice; Visit Provider Nurse Practitioner Family
DX: N39.0 Urinary tract infection, site not specified (principal)
CPT/HCPCS: 81003; 81015; 87086; 87186

== ENCOUNTER 2021-10-08 12:23 | Emergency (ER) | payer MEDICAID, SELFPAY ==
[2021-10-08 12:25] VITALS: BP 115/72; PULSE 105; RESP 16; TEMP 36.8; O2SAT 100
--- NOTE | 2021-10-08 13:15 | DI.RAD_ITS ---
Exam(s) XR PORTABLE CHEST AP EXAM: XR PORTABLE CHEST AP CLINICAL HISTORY: Cough, R/O PNA, PUI. TECHNIQUE: 2D digital imaging was performed. COMPARISON: CR XR RIBS RT W PA LAT CHEST from 12/11/2019 FINDINGS: LUNGS: Clear. No pleural abnormality seen. HEART: Normal. MEDIASTINUM: Normal. OTHER FINDINGS: None. IMPRESSION: No acute pulmonary findings. DATA REPOSITORY: RADIATION DOSE DELIVERED: Total DLP
--- NOTE | 2021-10-08 13:31 | ED.GENADUL_ITS ---
Discharge Plan Disposition Patient Disposition: HOME Condition: Stable Discharge Details Clinical Impression: URI (upper respiratory infection) Primary Care Provider: Unknown,Unknown ED Provider: Dorothy Herrera Home Meds and New Rx's Prescriptions: New doxycycline hyclate 100 mg tablet 100 mg PO BID 7 Days Qty: 14 0RF Rx Instructions: Take with food as directed twice daily x7 days. codeine-guaifenesin 6.3-100 mg/5 mL liquid 5 ml PO QHS PRN (Reason: cough) 7 Days Qty: 50 0RF Rx Instructions: Take 1 teaspoon at bedtime as needed for cough for the next 5-7 days if needed. No Action phenazopyridine [Pyridium] 200 mg tablet 200 mg PO TID PRN (Reason: pain) Qty: 30 0RF Rx Instructions: May take 1 tab every 8 hours as needed bladder spasms acetaminophen 325 mg tablet 650 mg PO Q6H PRN ijxqdmx-cwkadcuvscodp-trjxsmix 250-250-65 mg tablet 2 tab PO Q6H docusate sodium 100 mg capsule 100 mg PO DAILY gabapentin 100 mg capsule 100 mg PO TID hydromorphone 2 mg tablet 2 mg PO Q6H polyethylene glycol 3350 17 gram powder in packet 17 g PO DAILY promethazine 12.5 mg tablet 12.5 mg PO Q6H PRN dextroamphetamine-amphetamine 30 mg capsule,extended release 24hr 1 cap PO DAILY Discharge Instructions Instructions: Upper Respiratory Infection (ED) Additional Instructions: Please take the antibiotic as directed. Take this with food. You may try the Cheratussin or codeine guaifenesin as needed for cough at bedtime. At this time the x-ray shows no abnormality. COVID flu and RSV are negative. Do not take the cough medicine with any additional narcotic medication or mhko-gel-whwptmn sleep medications. Follow up with primary care provider in 3-5 days. Return to ED sooner if any worsening or concerns. Increase oral fluids. You may also try gargling with warm salt water. Stand Alone Forms: Work Release Discharge Data Discharge Date/Time-TO BE ENTERED AT DEPARTURE: 10/08/21 15:10 HPI General Mode of arrival: ambulatory . Date/Time Provider Initiated Documentation: 10/08/21 13:14 . Limitations to Documentation: no limitations . Information obtained by: patient, RN notes reviewed and old records reviewed . HPI Narrative: 26-year-old female presents to the ER with a chief complaint of upper respiratory symptoms for 3-1/2 weeks. She reports green productive cough, chest tightness,. 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 She has been taking Mucinex and TheraFlu bsdz-hlf-hhpacgw which has been little to no help. She is vaccinated for COVID. Last negative COVID test was on Wednesday. She denies any ear pain throat pain no history of asthma. She denies any drugs she does endorse few beers over the weekend. This morning she took ibuprofen. And an kgld-iwl-wixlfpp cold remedy. Past medical history includes irritable bowel syndrome, headaches, anxiety, bacterial vaginosis. Surgical history includes , cholecystectomy, D&C, hysterectomy Medications include Adderall gabapentin clonidine. Related Data Home Medications Medication Instructions Recorded Confirmed phenazopyridine 200 mg tablet 200 mg PO TID PRN pain 6 doses #30 02/13/21 02/13/21 (Pyridium) tabs acetaminophen 325 mg tablet 650 mg PO Q6H PRN 03/18/21 manqqpk-vnaqwzyyajmdr-drpsyvhw 250 2 tab PO Q6H 03/18/21 10/08/21 mg-250 mg-65 mg tablet docusate sodium 100 mg capsule 100 mg PO DAILY 03/18/21 gabapentin 100 mg capsule 100 mg PO TID 03/18/21 10/08/21 hydromorphone 2 mg tablet 2 mg PO Q6H 03/18/21 polyethylene glycol 3350 17 gram 17 g PO DAILY 03/18/21 oral powder packet promethazine 12.5 mg tablet 12.5 mg PO Q6H PRN 03/18/21 codeine 6.3 mg-guaifenesin 100 5 ml PO QHS PRN cough 7 days #50 mL 10/08/21 mg/5 mL oral liquid dextroamphetamine-amphetamine ER 1 cap PO DAILY 10/08/21 10/08/21 30 mg 24hr capsule,extend release doxycycline hyclate 100 mg tablet 100 mg PO BID 7 days #14 tabs 10/08/21 Previous Rx's Medication Instructions Recorded phenazopyridine 200 mg tablet 200 mg PO TID PRN pain 6 doses #30 02/13/21 (Pyridium) tabs codeine 6.3 mg-guaifenesin 100 5 ml PO QHS PRN cough 7 days #50 mL 10/08/21 mg/5 mL oral liquid doxycycline hyclate 100 mg tablet 100 mg PO BID 7 days #14 tabs 10/08/21 Allergies Allergy/AdvReac Type Severity Reaction Status Date / Time No Known Allergies Allergy Unverified 10/08/21 12:35 General Stated Complaint: RespSymp SARAH: 3 Review of Systems All systems reviewed & are unremarkable except as noted in HPI and below Cardiovascular Cardiovascular: Reports chest pain (Chest Tightness) Respiratory Respiratory: Reports change in phlegm color, Reports cough and Reports excessive phlegm production Gastrointestinal Gastrointestinal: Denies diarrhea, Denies nausea and Denies vomiting PFSH All Active Problems (Updated 10/08/21 @ 15:07 by Dorothy Herrera) URI (upper respiratory infection) (Acute) IBS (irritable bowel syndrome) (Chronic ~11/19/15) s/p normal colonoscopy HSIL on Pap smear of cervix (Acute ~04/21/18) during screening, - s/p colpo- no biopsy Frequent headaches (Acute) Anxiety (Chronic) Bacterial vaginosis (Acute) Medical History History of HPV infection No active medical problems Surgical History section (~2014) Cholecystectomy (~2010) Diagnostic Laproscopy (~07/09/15) After uterine perforation on D&C Dilation and curettage (~07/09/15) H/O bilateral salpingectomy History of hysterectomy (~10/18/18) S/P cystourethroscopy with dilation of urethral stricture (~10/18/18) Family History Mother No problems noted. Father Alcohol use disorder Sister Asthma Daughter Asthma Other Multiple sclerosis Social History Smoking/Tobacco Use Status: Current every day Tobacco Type: cigarettes Tobacco: How many years used: 10 Smoking risk assessment performed?: Yes Alcohol Intake: current Alcohol Intake frequency: a few times a month Drug use: Never Substance use type: does not use Caregiver/Support person: No Household members: significant other and children Housing: house Communication Needs: None Do you need help understanding health information?: Never Pets and animals: Yes Pets and animals: dog(s) Sexually active: Yes Do you think of yourself as: straight/heterosexual Current gender identity: female What is your relationship status?: living with partner How often do you talk on the phone with friends or family?: three or more times per week How often do you get together with friends or relatives?: once per week How often do you attend mormon or scientology services?: 4 or more times per year Do you belong to any clubs or organized social groups?: no Panel score (0-1 are the most socially isolated patients): 3 Duration: > 90 minutes/day Frequency: daily Nelida/Alevism: No preference Seatbelt use: sometimes Helmet use: No Drive intox or ride w/intox 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 Appears stated age. Normal body habitus. Head: Normocephalic, no trauma. Eyes: Pupils PERRL, Red reflex noted, EOM's intact. Eyelids symmetrical without lesions, discharge, or swelling. Chest: RRR, Normal S1, S2, distal pulses intact. Resp: Lungs clear to auscultation bilaterally, no wheezes, mild expiratory rales with coughing. Abdomen: Soft, non-distended, Normoactive bowel sounds all 4 quads. Musculoskeletal: Normal gait, 5/5 strength to all four extremities. Skin: No suspicious rashes or lesions. Capillary refill less than 2 sec. Neurologic: Cranial nerves II-XII intact. Alert and oriented x 3. Motor: No deficits noted. Sensory: Intact bilaterally all 4 extremities. Reflexes: DTR's intact bilaterally.. Hematologic/Lymphatic: No ecchymosis, no lymphadenopathy. Course Vital Signs Vital signs: Vital Signs Temperature 36.8 C 10/08/21 12:25 Pulse 105 H 10/08/21 12:25 Respiratory Rate 16 10/08/21 12:25 Blood Pressure 115/72 10/08/21 12:25 Pulse Oximetry 100 10/08/21 12:25 Temperature 36.8 C 10/08/21 12:25 Pulse 105 H 10/08/21 12:25 Respiratory Rate 16 10/08/21 12:25 Respiratory Effort 10/08/21 12:39 Blood Pressure 115/72 10/08/21 12:25 Blood Pressure Position Sitting 10/08/21 12:25 Pulse Oximetry 100 10/08/21 12:25 Oxygen Delivery Method Room Air 10/08/21 12:25 Oxygen Flow Rate 0 10/08/21 12:25 Pain Level 0 10/08/21 12:25 PAWSS Have you Been Recently Intoxicated or Drunk Within the Last 30 days?: No Have you Ever Experienced Previous Episodes of Alcohol Withdrawal?: No Have you ever Experienced Withdrawal Seizures?: No Have you ever Experienced Delirium Tremens(DT)s?: No Have you ever undergone Alcohol Rehabilitation Treatment (i.e, inpt ot outpatient treatment programs)?: No Have you ever Experienced Blackouts?: No Have you ever Combined Alcohol with other Downers within the last 90 days?: No Have you ever Combined Alcohol with any other Substance of Abuse during the last 90 days?: No Positive Blood Alcohol level on Presentation? [PCS.BAL]: No Evidence of Increased Autonomic Activity (i.e. HR>120, tremor, sweating, agitation, nausea)?: No Result: 0
[2021-10-08] MEDS: Albuterol/Ipratropium 3 ML UPD VIAL UPD (13:55)
[2021-10-08] MEDS: Benzonatate 100 MG CAP PO (14:28)
[2021-10-08 14:39] LABS: COVID-19 PCR Negative (Negative); Influenza A PCR Negative (Negative); Influenza B PCR Negative (Negative); RSV PCR Negative (Negative)
[2021-10-08 14:44] LABS: Source Nasopharynx
[2021-10-08 15:00] VITALS: BP 128/64; PULSE 86; RESP 16; O2SAT 99
[2021-10-08] MEDS: Doxycycline Hyclate 100 MG CAP PO (15:03)
--- NOTE | 2021-10-08 15:08 | NUR.NOTE ---
Nursing Note: Referral given to Care Management needs PCP, establish care; URI; cough within the next week. Victoria Enriquez
--- NOTE | 2021-10-10 10:21 | CMACTNOTE_ITS ---
- If Service Date Differs Date of service: 10/10/21 Time of Service: 10:21 Care Management Activity Note Irma is seen in the ED for an upper respiratory infection and a cough. At the request of ED provider, DAMIAN coordinates a referral to Mariusz Bowens MD, of [facility], on-call provider, to assist Irma in obtaining a follow up appointment and in establishing care with a PCP. She has Medicaid for insurance.
== END 2021-10-08 15:10 | disposition home or self-care (01) ==
PROVIDERS: Emergency Provider Registered Nurse Emergency
DX: J06.9 Acute upper respiratory infection, unspecified (principal); R07.89 Other chest pain
CPT/HCPCS: 87637; 99283; 71045; J7620

== ENCOUNTER 2023-02-17 11:51 | Emergency (ER) | payer MEDICAID, SELFPAY ==
--- NOTE | 2023-02-17 11:45 | RT.EKG_ITS ---
APPROVED REPORT Exam: Resting ECG Reason for Exam: Chest Pain Patient Location: E HR:106 bpm ECG Measurements Heart Rate 106 AXIS DE 118 P 68 QRSd 76 QRS 73 QT 323 T 59 QTc 430 Conclusion Sinus tachycardia...rate> 99
[2023-02-17 11:56] VITALS: BP 100/50; PULSE 109; RESP 20; TEMP 37; O2SAT 99
[2023-02-17 12:17] VITALS: RESP 16
[2023-02-17 12:52] LABS: Absolute Basophil Count 0.02 10^3/uL (0.0-0.2); Absolute Eosinophil Count 0.04 10^3/uL (0.0-0.7); Absolute Lymphocyte Count 0.72 10^3/uL (1.2-3.4); Absolute Monocyte Count 0.09 10^3/uL (0.1-0.8); Absolute Neutrophil Count 1.91 10^3/uL (1.2-6.7); Basophils % 0.7; Eosinophils % 1.4; HCT 41.2 % (36.0-46.0); HGB 14.8 g/dL (11.2-15.7); Lymphocytes % 25.9; MCH 33.9 pg (27.0-33.0); MCHC 35.9 % (32.0-36.0); MCV 94 fL (80-95); Monocytes % 3.2; Neutrophils % 68.8; RBC 4.37 10^6/uL (3.93-5.22); RDW-SD 38.2 fL; WBC 2.78 10^3/uL (4.4-10.8)
[2023-02-17] MEDS: Albuterol/Ipratropium 3 ML UPD VIAL UPD (13:00)
--- NOTE | 2023-02-17 13:04 | DI.RAD_ITS ---
Exam(s) XR PORTABLE CHEST AP EXAM: XR PORTABLE CHEST AP CLINICAL HISTORY: shortness of breath TECHNIQUE: 2D digital imaging was performed. COMPARISON: CR XR PORTABLE CHEST AP from 10/08/2021 FINDINGS: LUNGS: Clear. No pleural abnormality seen. HEART: Normal size. AORTA: Normal diameter. BONES: Unremarkable for age. Soft tissues: Unremarkable. IMPRESSION: No acute findings. DATA REPOSITORY: RADIATION DOSE DELIVERED:
[2023-02-17 13:06] LABS: Platelet Count 83 10^3/uL (130-400)
--- NOTE | 2023-02-17 13:10 | DI.CT_ITS ---
Exam(s) CT CHEST PE CTA EXAM: CT CHEST PE CTA CLINICAL HISTORY: shortness of breath, chest pain. TECHNIQUE: Imaging Protocol: Axial CT angiography was performed with multi-slice acquisition and mu lti-planar reconstructions as well as axial, coronal and sagittal MIP reconstructions. CONTRAST MATERIAL: Intravenous: Omnipaque 350 Contrast volume:65 ml COMPARISON: CT CT ABDOMEN PELVIS W from 02/11/2021 FINDINGS: Exam is limited by motion. Pulmonary Arteries: No evidence of filling defect to suggest pulmonary emboli. Small distal emboli no t excluded. Tracheobronchial tree: Patent where visualized. Mediastinum and Carmela: No dominant adenopathy or fluid collection. Pulmonary parenchyma: No consolidation or dominant measurable mass. Pleura: No effusion or pneumothorax. Heart: The heart is not dilated. No coronary artery calcifications are seen. Aorta: Thoracic aorta non-dilated. No aneurysm. No dissection. Upper abdomen: Unremarkable. Bones: Unremarkable for age. Tubes, Catheters, and Lines: None IMPRESSION: No evidence of pulmonary embolism or other acute abnormality.. RADIATION DOSE DELIVERED: Total DLP DATA REPOSITORY: All CT scans at this facility are submitted to the National Radiology Data Registry (NRDR) Dose Index Registry (DIR) with the [employer] [place] (ACR). RADIATION OPTIMIZATION: All CT scans at this facility use at least one of these dose optimization te chniques: automated exposure control; mA and/or kV adjustment per patient size (includes targeted exa ms where dose is matched to clinical indication); or iterative reconstruction.
[2023-02-17 13:19] LABS: ALT 99 U/L (14-59); AST 62 U/L (15-37); Albumin 3.6 g/dL (3.4-5.0); Alkaline Phosphatase 105 U/L (46-116); BUN 6 mg/dL (7-18); Bilirubin, Total 0.4 mg/dL (0.2-1.0); CREATININE 0.7 mg/dL (0.55-1.02); Calcium 9.4 mg/dL (8.5-10.1); Chloride 105 mmol/L (98-107); Estimated GFR 119.99 (mL/min/1.73m2); Glucose 85 mg/dL (74-106); Magnesium 2.1 mg/dL (1.8-2.4); NT-proBNP 49 pg/mL (<300); Potassium 3.2 mmol/L (3.5-5.1); Sodium 141 mmol/L (136-145); Total Protein 7.2 g/dL (6.4-8.2)
[2023-02-17 13:20] LABS: Troponin I < 50 ng/L (<or=60)
[2023-02-17] MEDS: Omnipaque 350 MG/ML 100 ML BTL IJ (13:34)
[2023-02-17] MEDS: Normal Saline - Diluent 50 ML VIAL IJ (13:34)
--- NOTE | 2023-02-17 15:11 | W.ED.GENAD ---
Discharge Plan Disposition Patient Disposition: Home Condition: Stable Discharge Details Clinical Impression: Chronic cough, Chest pain, Hypokalemia, Elevated liver function tests Primary Care Provider: Unknown,Unknown ED Provider: Arnol Hassan Home Meds and New Rx's Prescriptions: Continued acetaminophen 325 mg tablet 650 mg PO Q6H PRN slfcxdh-duutndbupkpzo-nukocwmp 250-250-65 mg tablet 2 tab PO Q6H gabapentin 100 mg capsule 100 mg PO DAILY Patient Comments: patient reports only taking this in the morning dextroamphetamine-amphetamine 30 mg capsule,extended release 24hr 1 cap PO DAILY Discontinued phenazopyridine [Pyridium] 200 mg tablet 200 mg PO TID PRN (Reason: pain) Qty: 30 0RF Patient Comments: patient not taking Rx Instructions: May take 1 tab every 8 hours as needed bladder spasms docusate sodium 100 mg capsule 100 mg PO DAILY Patient Comments: patient not taking 02/17/23 hydromorphone 2 mg tablet 2 mg PO Q6H Patient Comments: patient not taking polyethylene glycol 3350 17 gram powder in packet 17 g PO DAILY Patient Comments: patient no longer taking promethazine 12.5 mg tablet 12.5 mg PO Q6H PRN Patient Comments: patient no longer taking Discharge Instructions Instructions: Chest Pain (ED), Hypokalemia (ED) Additional Instructions: Your liver enzymes were slightly elevated today. Please be sure to discuss this with primary care physician Please follow-up with a primary care physician. Additional outpatient diagnostic testing may be necessary if symptoms persist. Return to the ER immediately for any worsening or new concerning symptoms. Medical Decision Making 27-year-old female smoker here with chronic cough over the past 1.5 years, cough productive of white sputum, patient also with diffuse chest tightness and shortness of breath. Screening EKG was reviewed interpreted by me: Please see report, sinus tachycardia 106 bpm. Patient is saturating well no respiratory distress. I am concerned about the potential for acute pulmonary embolism versus pneumonia versus chronic bronchitis. X-ray was interpreted by radiology as no acute findings. CT of the chest was reviewed and interpreted by radiology: IMPRESSION: No evidence of pulmonary embolism or other acute abnormality..? Labs reviewed and mild hypokalemia noted. Lymphocyte count is low. Mild elevation of LFTs. Troponin and BNP both negative. Potassium 20 mEq orally ordered. Plan for discharge with outpatient follow-up with PCP. Usual customary discharge instructions were reviewed with the patient. Lab Data Lab results reviewed: Yes I reviewed the patient's lab results. Labs: Laboratory Tests Range/Units 02/17/23 02/17/23 12:30 12:30 WBC (4.4-10.8) 10^3/uL 2.78 L RBC (3.93-5.22) 10^6/uL 4.37 Hgb (11.2-15.7) g/dL 14.8 Hct (36.0-46.0) % 41.2 MCV (80-95) fL 94 MCH (27.0-33.0) pg 33.9 H MCHC (32.0-36.0) % 35.9 RDW (11.7-14.6) % 11.0 L Plt Count (130-400) 10^3/uL 83 L MPV (8.0-11.0) fL 9.0 Immature Gran % 0.0 Neutrophils % 68.8 Lymphocytes % 25.9 Monocytes % 3.2 Eosinophils % 1.4 Basophils % 0.7 Nucleated RBC % (0.0-0.3) % 0.0 Absolute Neutrophils (1.2-6.7) 10^3/uL 1.91 Absolute Lymphocytes (1.2-3.4) 10^3/uL 0.72 L Absolute Monocytes (0.1-0.8) 10^3/uL 0.09 L Absolute Eosinophils (0.0-0.7) 10^3/uL 0.04 Absolute Basophils (0.0-0.2) 10^3/uL 0.02 Sodium (136-145) mmol/L 141 Potassium (3.5-5.1) mmol/L 3.2 L Chloride (98-107) mmol/L 105 Carbon Dioxide (21.0-32.0) mmol/L 24.0 Anion Gap (3-11) mmol/L 12.0 H BUN (7-18) mg/dL 6 L Creatinine (0.55-1.02) mg/dL 0.7 Est GFR (CKD-EPI 2020) (mL/min/1.73m2) 119.99 Glucose (74-106) mg/dL 85 Calcium (8.5-10.1) mg/dL 9.4 Magnesium (1.8-2.4) mg/dL 2.1 Total Bilirubin (0.2-1.0) mg/dL 0.4 AST (15-37) U/L 62 H ALT (14-59) U/L 99 H Alkaline Phosphatase (46-116) U/L 105 Troponin I (<or=60) ng/L < 50 NT-Pro-B Natriuret Pep (<300) pg/mL 49 Total Protein (6.4-8.2) g/dL 7.2 Albumin (3.4-5.0) g/dL 3.6 HPI General Mode of arrival: ambulatory. Date/Time Provider Initiated Documentation: 02/17/23 12:04. Limitations to Documentation: no limitations. Information obtained by: patient. HPI Narrative: 27-year-old female presents with chief complaint of cough. Patient notes chronic cough over the past 1.5 years. Cough is productive of white mucus. She has associated chest discomfort described as a diffuse tightness. She has associated shortness of breath. She was seen at [facility] today and sent in for evaluation. No associated fever. Related Data Home Medications Medication Instructions Recorded Confirmed acetaminophen 325 mg tablet 650 mg PO Q6H PRN 03/18/21 cugnxwv-szxalrwepmtko-kaxntbhx 250 2 tab PO Q6H 03/18/21 02/17/23 mg-250 mg-65 mg tablet gabapentin 100 mg capsule 100 mg PO DAILY 03/18/21 02/17/23 dextroamphetamine-amphetamine ER 1 cap PO DAILY 10/08/21 02/17/23 30 mg 24hr capsule,extend release Allergies Allergy/AdvReac Type Severity Reaction Status Date / Time No Known Allergies Allergy Unverified 02/17/23 12:13 General Stated Complaint: SOB SARAH: 3 PFSH All Active Problems Chronic cough (Acute) Chest pain (Acute) Hypokalemia (Acute) Elevated liver function tests (Acute) IBS (irritable bowel syndrome) (Chronic ~11/19/15) s/p normal colonoscopy HSIL on Pap smear of cervix (Acute ~04/21/18) during screening, - s/p colpo- no biopsy Frequent headaches (Acute) Anxiety (Chronic) Bacterial vaginosis (Acute) Medical History History of HPV infection No active medical problems Surgical History section (~2014) Cholecystectomy (~2010) Diagnostic Laproscopy (~07/09/15) After uterine perforation on D&C Dilation and curettage (~07/09/15) H/O bilateral salpingectomy History of hysterectomy (~10/18/18) S/P cystourethroscopy with dilation of urethral stricture (~10/18/18) Family History Mother No problems noted. Father Alcohol use disorder Sister Asthma Daughter Asthma Other Multiple sclerosis Social History Smoking/Tobacco Use Status: Current every day Tobacco Type: cigarettes Tobacco: How many years used: 10 Smoking risk assessment performed?: Yes Alcohol Intake: current Alcohol Intake frequency: a few times a month Drug use: Never Substance use type: does not use Caregiver/Support person: No Household members: significant other and children Housing: house Communication Needs: None Do you need help understanding health information?: Never Pets and animals: Yes Pets and animals: dog(s) Sexually active: Yes Do you think of yourself as: straight/heterosexual Current gender identity: female What is your relationship status?: living with partner How often do you talk on the phone with friends or family?: three or more times per week How often do you get together with friends or relatives?: once per week How often do you attend anabaptist or scientologist services?: 4 or more times per year Do you belong to any clubs or organized social groups?: no Panel score (0-1 are the most socially isolated patients): 3 Duration: > 90 minutes/day Frequency: daily Nelida/Mandaeism: No preference Seatbelt use: sometimes Helmet use: No Drive intox or ride w/intox school bus driver/teacher assistant: No Do you feel safe at home: Yes Do you feel safe in your relationship?: Yes Exam Const General: cooperative and no acute distress HENMT Mouth: moist mucous membranes Eyes Conjunctivae: normal conjunctivae Sclera: normal sclerae Neck Neck: trachea midline and supple Resp Effort & Inspection: not labored Auscultation: clear to auscultation bilaterally, no rales, no rhonchi and no wheezes Other: Breath sounds somewhat diminished bilaterally Cardio Jugular venous pressure: no JVD Rate: regular rate and not tachycardic Rhythm: regular rhythm GI Palpation: soft, not firm, no guarding, no masses, not rigid and nontender Skin General skin exam: no rashes or lesions noted Neuro General: patient alert, patient awake, patient oriented x3 and tone normal Extrem General: no calf tenderness and no edema Psych Appearance: grossly normal Mental Status: mental status grossly normal Speech and Movement: speech and movement normal Course Vital Signs Vital signs: Vital Signs Temperature 37.0 C 02/17/23 11:56 Pulse 109 H 02/17/23 11:56 Respiratory Rate 20 02/17/23 11:56 Blood Pressure 100/50 L 02/17/23 11:56 Pulse Oximetry 99 02/17/23 11:56 Temperature 37.0 C 02/17/23 11:56 Temperature Source Skin 02/17/23 11:56 Pulse 109 H 02/17/23 11:56 Respiratory Rate 16 02/17/23 12:17 Respiratory Effort Short of Breath 02/17/23 12:17 Blood Pressure 100/50 L 02/17/23 11:56 Blood Pressure Position Sitting 02/17/23 11:56 Pulse Oximetry 99 02/17/23 11:56 Oxygen Delivery Method Room Air 02/17/23 11:56 Oxygen Flow Rate 0 02/17/23 11:56 Lab/Test Results Lab/Test Results: Laboratory Tests Range/Units 02/17/23 02/17/23 12:30 12:30 WBC (4.4-10.8) 10^3/uL 2.78 L RBC (3.93-5.22) 10^6/uL 4.37 Hgb (11.2-15.7) g/dL 14.8 Hct (36.0-46.0) % 41.2 MCV (80-95) fL 94 MCH (27.0-33.0) pg 33.9 H MCHC (32.0-36.0) % 35.9 RDW (11.7-14.6) % 11.0 L Plt Count (130-400) 10^3/uL 83 L MPV (8.0-11.0) fL 9.0 Immature Gran % 0.0 Neutrophils % 68.8 Lymphocytes % 25.9 Monocytes % 3.2 Eosinophils % 1.4 Basophils % 0.7 Nucleated RBC % (0.0-0.3) % 0.0 Absolute Neutrophils (1.2-6.7) 10^3/uL 1.91 Absolute Lymphocytes (1.2-3.4) 10^3/uL 0.72 L Absolute Monocytes (0.1-0.8) 10^3/uL 0.09 L Absolute Eosinophils (0.0-0.7) 10^3/uL 0.04 Absolute Basophils (0.0-0.2) 10^3/uL 0.02 Sodium (136-145) mmol/L 141 Potassium (3.5-5.1) mmol/L 3.2 L Chloride (98-107) mmol/L 105 Carbon Dioxide (21.0-32.0) mmol/L 24.0 Anion Gap (3-11) mmol/L 12.0 H BUN (7-18) mg/dL 6 L Creatinine (0.55-1.02) mg/dL 0.7 Est GFR (CKD-EPI 2020) (mL/min/1.73m2) 119.99 Glucose (74-106) mg/dL 85 Calcium (8.5-10.1) mg/dL 9.4 Magnesium (1.8-2.4) mg/dL 2.1 Total Bilirubin (0.2-1.0) mg/dL 0.4 AST (15-37) U/L 62 H ALT (14-59) U/L 99 H Alkaline Phosphatase (46-116) U/L 105 Troponin I (<or=60) ng/L < 50 NT-Pro-B Natriuret Pep (<300) pg/mL 49 Total Protein (6.4-8.2) g/dL 7.2 Albumin (3.4-5.0) g/dL 3.6 POC- Test(urine) Negative
[2023-02-17] MEDS: Potassium Chloride 20 MEQ TABCR PO (15:28)
[2023-02-17 15:51] VITALS: BP 107/75; PULSE 103; TEMP 36.5; O2SAT 100
--- NOTE | 2023-02-17 16:37 | NUR.NOTE ---
Accessed PTs chart to a referral. Pt needs a Primary Care Physican for follow up from ED and establishing a Primary. Dr would like this to happen in a week or less.
== END 2023-02-17 15:44 | disposition home or self-care (01) ==
PROVIDERS: Emergency Provider Student in an Organized Health Care Education/Training Program
DX: R07.9 Chest pain, unspecified (principal); E87.6 Hypokalemia; R79.89 Other specified abnormal findings of blood chemistry; R06.02 Shortness of breath; F17.210 Nicotine dependence, cigarettes, uncomplicated
CPT/HCPCS: 36415; 71275; 80053; 81025; 93005; 99285; 71045; 83735; 83880; 84484; 85025; 93010; 99284; J3490; J7620